=== PATIENT | female | born 1940 | race Caucasian/White ===

== ENCOUNTER → 2017-10-20 | Outpatient (CLI) | payer MEDICARE ==
[~2017-10-20] MED LIST: AMARYL4 MG PO; ASPIRIN325 MG PO; CALCITRIOL0.25 MCG PO; JANUVIA50 MG PO; PRILOSEC20 MG PO; TOPROL XL100 MG PO; ZOCOR40 MG PO; ZYLOPRIM100 MG PO
== END | disposition home or self-care (01) ==
LOC: US 03:31
DX: E04.9 Nontoxic goiter, unspecified (principal)

== ENCOUNTER → 2017-11-07 | Outpatient (CLI) | payer MEDICARE ==
[2017-11-07 10:41] LABS: INTERNATIONAL NORM RATIO 0.9 (2.0-3.5)
== END | disposition home or self-care (01) ==
LOC: SDC 04:58 → EDSTATUS 11:00 → US 11:00 → SDC 11:00
PROVIDERS: Family Medicine
DX: E04.1 Nontoxic single thyroid nodule (principal)

== ENCOUNTER → 2018-03-01 | Day surgery (SDC) | payer MEDICARE ==
[~2018-03-01] VITALS: Ht 154.9 cm; Wt 88.5 kg
[~2018-03-01] MED LIST changes: +24 HOUR ALLER15.8 ML NAS; +AMLODIPINE BES2.5 MG PO; +LANTUS SOL100 UNIT/1 SC; +MONTELUKAST SOD10 MG PO; +PRILOSEC20 M1 PO; -PRILOSEC20 MG PO; +PROAIR HFA8.5 GM INH; +SODIUM BICARBO650 MG PO; +VITAMIN D32000 UNIT PO
--- NOTE | ~2018-03-01 | O ---
[place], [place] OPERATIVE NOTE NAME: CECILIO FREEMAN UNIT #: [id number] ROOM: DOCTOR: REY PLUMMER MD BIRTHDATE: [birth year] DOS: 03/01/2018 PREOPERATIVE DIAGNOSIS: Cataract, left eye. POSTOPERATIVE DIAGNOSIS: Cataract, left eye. OPERATION: Extracapsular cataract extraction by phacoemulsification with posterior chamber intraocular lens implantation, left eye. ANESTHESIA: Monitored standby. OPERATIVE FINDINGS AND PROCEDURE: 2% Xylocaine topical anesthetic gel was applied to the eye in the preop area. The patient was taken to the operating room and prepped and draped in the standard fashion for sterile intraocular surgery. A time out procedure was performed verifying correct patient, correct site and corrects lens with Dorothea Plummer M.D. The operating microscope was swung into position and the lid speculum was inserted. Using a Shannon paracentesis blade, a paracentesis was made through clear cornea. Viscoelastic was used to fill the anterior chamber. Using a metal keratome a 2.4 mm self-sealing clear corneal cataract incision was made temporally at the limbus. Using a pre-bent 25 gauge cystotome needle, a standard continuous curvilinear capsulorrhexis was performed. The anterior capsule was removed with forceps. The lens nucleus was hydrodissected and phacoemulsified in the posterior chamber. Cortical material was removed with the irrigation aspiration hand piece and the posterior capsule was then polished with a curet under irrigation. The posterior chamber and capsular bag were filled with viscoelastic. A posterior chamber intraocular lens manufactured by: [employer], Model #[id number], and 12.0 diopters in strength were then inserted into the posterior chamber and within the capsular bag using the lens cartridge and injector system. Viscoelastic was removed using the irrigation aspiration handpiece. The anterior chamber was filled with balanced salt solution through the paracentesis. Both the paracentesis site and cataract incisions were hydrated with BSS and verified to be water-tight and self-sealing. Cefuroxime 1 mg/0.1 mL was injected into the anterior chamber through the paracentesis site. The incision checked to be water-tight using a Weck-Eusebia sponge. The integrity of the cataract wound and ocular tension were checked. Lid speculum and drapes were removed. The patient was transferred from the operating room to the recovery room in satisfactory condition. [place], [place] OPERATIVE NOTE NAME: CECILIO FREEMAN UNIT #: [id number] ROOM: DOCTOR: REY PLUMMER MD BIRTHDATE: [birth year] REY PLUMMER MD CM:OPRECORD:OPERATIVE NOTE REY PLUMMER MD 03/01/18 0951 interface
[2018-03-01 07:51] VITALS: BP 141/49
[2018-03-01 09:00] VITALS: BP 117/54
[2018-03-01 09:15] VITALS: BP 136/63
[2018-03-01 09:23] VITALS: BP 144/51
== END | disposition home or self-care (01) ==
LOC: SDC 02-24 11:00
DX: E11.36 Type 2 diabetes mellitus with diabetic cataract (principal); H25.812 Combined forms of age-related cataract, left eye; I10 Essential (primary) hypertension; E78.00 Pure hypercholesterolemia, unspecified; J45.909 Unspecified asthma, uncomplicated; K21.9 Gastro-esophageal reflux disease without esophagitis; M19.90 Unspecified osteoarthritis, unspecified site; E07.9 Disorder of thyroid, unspecified; Z98.890 Other specified postprocedural states; Z90.49 Acquired absence of other specified parts of digestive tract; Z91.012 Allergy to eggs; Z96.651 Presence of right artificial knee joint; Z90.710 Acquired absence of both cervix and uterus; Z98.41 Cataract extraction status, right eye; Z85.828 Personal history of other malignant neoplasm of skin

== ENCOUNTER 2019-02-20 11:17 | Emergency (ER) | payer MEDICARE ==
[~2019-02-20] VITALS: Ht 157.4 cm; Wt 87.5 kg
[~2019-02-20 11:17] MED LIST changes: +AUGMENTIN 875875 MG PO
[2019-02-20 13:27] VITALS: BP 136/44
[2019-02-20] MEDS ORDERED: VIBRAMYCIN100 MG PO (14:06)
[2019-02-20] MEDS ORDERED: BLEPH-10 5 ML5 ML OP (14:06)
== END 2019-02-20 14:11 | disposition home or self-care (01) ==
LOC: ED 11:17
DX: J45.909 Unspecified asthma, uncomplicated (principal); H10.33 Unspecified acute conjunctivitis, bilateral; E11.9 Type 2 diabetes mellitus without complications; I10 Essential (primary) hypertension; M19.90 Unspecified osteoarthritis, unspecified site; E78.00 Pure hypercholesterolemia, unspecified; K21.9 Gastro-esophageal reflux disease without esophagitis; Z79.899 Other long term (current) drug therapy; Z91.012 Allergy to eggs

== ENCOUNTER → 2019-02-28 | Outpatient (CLI) | payer MEDICARE ==
[~2019-02-28] MED LIST changes: +BLEPH-10 5 ML5 ML OP; +VIBRAMYCIN100 MG PO
== END | disposition home or self-care (01) ==
LOC: US 01:04
DX: E04.2 Nontoxic multinodular goiter (principal)

== ENCOUNTER 2019-07-13 10:19 | Inpatient (IN) | payer MEDICARE ==
[~2019-07-13] VITALS: Ht 157.4 cm; Wt 86.4 kg
[2019-07-13 10:22] VITALS: BP 155/73
[2019-07-13 11:22] LABS: BASO % 0.3 % (0.0-1.0); EOS # 0.1 10*3/uL (0.0-0.4); EOS % 0.9 % (1.0-4.0); HEMATOCRIT 37.9 % (37.0-47.0); LYMPH # 0.9 10*3/uL (1.3-4.4); LYMPH % 5.5 % (27.0-41.0); MEAN CELL VOLUME 92.9 fl (81.0-99.0); MEAN CORPUSCULAR HGB 29.4 pg (27.0-31.0); MEAN CORPUSCULAR HGB CONC 31.7 g/dl (33.0-37.0); MEAN PLATELET VOLUME 11.8 fl (9.6-12.3); MONO # 1.2 10*3/uL (0.1-1.0); MONO % 7.4 % (3.0-9.0); NEUT # 13.2 10*3/uL (2.3-7.9); NEUT % 85.3 % (47.0-73.0); PLATELET COUNT AUTOMATED 232 10*3/uL (130-400); RED BLOOD COUNT 4.08 10*6/uL (4.10-5.10); WHITE BLOOD COUNT 15.5 10*3/uL (4.8-10.8)
[2019-07-13 11:37] LABS: ALBUMIN 2.6 gm/dl (3.1-4.5); CREATININE 2.94 mg/dL (0.55-1.02); POTASSIUM 4.2 mmol/L (3.5-5.1); TOTAL PROTEIN 7.2 gm/dL (6.4-8.2)
[2019-07-13] MEDS ORDERED: MAGNESIUM400 M1 PO (13:32)
[2019-07-13 13:48] VITALS: BP 145/59
[2019-07-13 16:00] VITALS: BP 124/39
--- NOTE | 2019-07-13 16:35 | NUR ---
ANSWERING SERVICE WAS NOTIFIED OF DR. SANDRA HOWARD. RESPONSE OF NOTIFICATION WAS all relevant information related to consult was communicated to Agustina who states she will forward to SERAFIN Che
[2019-07-13 20:00] VITALS: BP 120/48
--- NOTE | 2019-07-13 20:00 | NUR ---
Patient resting quietly with no c/o discomfort. Respirations easy and regular. Vital signs stable. No overt distress. NISH VALENTINE
[2019-07-14] VITALS: BP 98/36
[2019-07-14 04:00] VITALS: BP 120/42
--- NOTE | 2019-07-14 05:38 | NUR ---
24 HR chart check completed.
[2019-07-14 06:20] LABS: HEMATOCRIT 32.5 % (37.0-47.0); HEMOGLOBIN 10.7 g/dl (12.0-16.0); MEAN CELL VOLUME 90.5 fl (81.0-99.0); MEAN CORPUSCULAR HGB 29.8 pg (27.0-31.0); MEAN CORPUSCULAR HGB CONC 32.9 g/dl (33.0-37.0); MEAN PLATELET VOLUME 11.8 fl (9.6-12.3); PLATELET COUNT AUTOMATED 221 10*3/uL (130-400); RED BLOOD COUNT 3.59 10*6/uL (4.10-5.10); RED CELL DISTRI WIDTH 12.7 % (0-14.5); WHITE BLOOD COUNT 13.3 10*3/uL (4.8-10.8)
[2019-07-14 06:50] LABS: CREATININE 2.69 mg/dL (0.55-1.02); PHOSPHOROUS 3.6 mg/dL (2.5-4.9); POTASSIUM 4.5 mmol/L (3.5-5.1)
[2019-07-14 07:47] LABS: TOTAL CELLS COUNTED 100 #CELLS
[2019-07-14 07:48] LABS: BURR CELLS FEW; OVALOCYTES FEW; PLATELET SUFFICIENCY NORMAL (NORMAL)
[2019-07-14 07:58] LABS: VITAMIN D, 25-HYDROXY 68.3 ng/mL (30-100)
[2019-07-14 08:00] VITALS: BP 145/62
--- NOTE | 2019-07-14 11:02 | NUR ---
Building Maintenance Engineer in to talk to patient. Patient states lives at home with daughter living next door. There are 1 steps in the home. Physician: Babar Mcclellan Pharmacy: [id number] Home health services: no Patient's level of ADLs: INDEPENDENT Patient has working utilities: yes DME: cane and walker - but doesn't use Follow-up physician's appointment after d/c: yes Does patient want to access PORTAL?: yes Discharge plan Patient resides independently with her daughter living next door. Patient's home is handicap accessible with a walk-in shower and guard rails in place in the bathroom. Pt has never needed VNA services and does not have a preferred agency if needed. Anticipate pt returning home without needs. KAEL MARES
[2019-07-14 12:00] VITALS: BP 152/66
[2019-07-14 15:25] LABS: BILIRUBIN NEGATIVE (NEGATIVE); BLOOD TRACE-LYSED (NEGATIVE); CLARITY CLEAR (CLEAR); COLOR YELLOW (YELLOW); GLUCOSE TRACE (NEGATIVE); KETONE NEGATIVE (NEGATIVE); SPECIFIC GRAVITY 1.005 (1.005-1.030); UROBILINOGEN 0.2 E.U./dl (0.2-1.0)
[2019-07-14 15:26] LABS: LEUKO ESTERASE NEGATIVE (NEGATIVE); NITRITE NEGATIVE (NEGATIVE)
[2019-07-14 15:27] LABS: BACTERIA TRACE; EPITHELIAL CELLS 0-2
[2019-07-14 16:00] VITALS: BP 113/49; BP 128/59
--- NOTE | 2019-07-14 19:30 | NUR ---
24 HR chart check completed.
[2019-07-14 20:00] VITALS: BP 150/73
--- NOTE | 2019-07-14 20:00 | NUR ---
Patient resting quietly with no c/o discomfort. Respirations easy and regular. Vital signs stable. No overt distress. NISH VALENTINE
[2019-07-15] VITALS: BP 117/52
--- NOTE | 2019-07-15 | NUR ---
PT WITH SLIGHT CONFUSION AT PRESENT, REORIENTED FREQUENTLY.
--- NOTE | 2019-07-15 04:00 | NUR ---
Patient resting quietly with no c/o discomfort. Respirations easy and regular. Vital signs stable. No overt distress. NISH VALENTINE
[2019-07-15 06:40] LABS: BASO % 0.1 % (0.0-1.0); EOS # 0.1 10*3/uL (0.0-0.4); EOS % 0.5 % (1.0-4.0); HEMATOCRIT 30.9 % (37.0-47.0); HEMOGLOBIN 10.1 g/dl (12.0-16.0); LYMPH # 1.6 10*3/uL (1.3-4.4); LYMPH % 10.5 % (27.0-41.0); MEAN CELL VOLUME 91.7 fl (81.0-99.0); MEAN CORPUSCULAR HGB CONC 32.7 g/dl (33.0-37.0); MEAN PLATELET VOLUME 11.9 fl (9.6-12.3); MONO % 6.7 % (3.0-9.0); NEUT # 12.4 10*3/uL (2.3-7.9); NEUT % 81.6 % (47.0-73.0); PLATELET COUNT AUTOMATED 238 10*3/uL (130-400); RED BLOOD COUNT 3.37 10*6/uL (4.10-5.10); RED CELL DISTRI WIDTH 12.9 % (0-14.5); WHITE BLOOD COUNT 15.2 10*3/uL (4.8-10.8)
[2019-07-15 06:49] LABS: CREATININE 2.44 mg/dL (0.55-1.02)
[2019-07-15 08:00] VITALS: BP 135/42
[2019-07-15] MEDS ORDERED: ZITHROMAX250 MG PO (11:06)
[2019-07-15] MEDS ORDERED: CALCITRIOL0.25 MCG PO (11:06)
--- NOTE | 2019-07-15 11:30 | NUR ---
PT DISCHARGED HOME AT THIS TIME. INSTRUCTIONS REVIEWED. STEPHANIE AYERS.
[2019-07-15] MEDS ORDERED: ROBITUSSIN5 ML PO (11:51)
== END 2019-07-15 11:30 | disposition home or self-care (01) | DRG 682 ==
LOC: ED 10:19 → 5E 13:07 → EDHOLD 13:07 → 5E 13:10
PROVIDERS: Internal Medicine; Physician Assistant; Student in an Organized Health Care Education/Training Program; ADMIT Emergency Medicine
DX: N17.0 Acute kidney failure with tubular necrosis (principal); J18.9 Pneumonia, unspecified organism; E43 Unspecified severe protein-calorie malnutrition; E87.2 Acidosis; E11.65 Type 2 diabetes mellitus with hyperglycemia; K21.9 Gastro-esophageal reflux disease without esophagitis; E78.5 Hyperlipidemia, unspecified; E11.22 Type 2 diabetes mellitus with diabetic chronic kidney disease; N18.9 Chronic kidney disease, unspecified; I12.9 Hypertensive chronic kidney disease with stage 1 through stage 4 chronic kidney disease, or unspecified chronic kidney disease; E11.649 Type 2 diabetes mellitus with hypoglycemia without coma; J45.909 Unspecified asthma, uncomplicated; E66.9 Obesity, unspecified; Z96.651 Presence of right artificial knee joint; M19.90 Unspecified osteoarthritis, unspecified site; Z98.42 Cataract extraction status, left eye; Z91.012 Allergy to eggs; Z82.49 Family history of ischemic heart disease and other diseases of the circulatory system; Z83.3 Family history of diabetes mellitus; Z79.4 Long term (current) use of insulin; Z98.41 Cataract extraction status, right eye; Z90.49 Acquired absence of other specified parts of digestive tract; Z90.710 Acquired absence of both cervix and uterus; Z68.34 Body mass index [BMI] 34.0-34.9, adult; N18.4 Chronic kidney disease, stage 4 (severe)

== ENCOUNTER → 2020-02-11 | Outpatient (CLI) | payer MEDICARE ==
[~2020-02-11] MED LIST changes: +MAGNESIUM400 M1 PO; +ROBITUSSIN5 ML PO; +ZITHROMAX250 MG PO
[2020-02-11 12:57] LABS: BASO # 0.1 10*3/uL (0.0-0.1); BASO % 0.5 % (0.0-1.0); EOS # 0.7 10*3/uL (0.0-0.4); EOS % 6.1 % (1.0-4.0); HEMATOCRIT 37.6 % (37.0-47.0); LYMPH # 2.2 10*3/uL (1.3-4.4); LYMPH % 20.1 % (27.0-41.0); MEAN CORPUSCULAR HGB 29.5 pg (27.0-31.0); MEAN CORPUSCULAR HGB CONC 31.4 g/dl (33.0-37.0); MEAN PLATELET VOLUME 12.4 fl (9.6-12.3); MONO # 0.8 10*3/uL (0.1-1.0); MONO % 7.2 % (3.0-9.0); NEUT # 7.3 10*3/uL (2.3-7.9); NEUT % 65.7 % (47.0-73.0); PLATELET COUNT AUTOMATED 209 10*3/uL (130-400); RED CELL DISTRI WIDTH 13.5 % (0-14.5); WHITE BLOOD COUNT 11.1 10*3/uL (4.8-10.8)
[2020-02-11 13:20] LABS: ALBUMIN 3.5 gm/dl (3.1-4.5); POTASSIUM 4.8 mmol/L (3.5-5.1)
[2020-02-11 13:22] LABS: CREATININE 2.64 mg/dL (0.55-1.02)
[2020-02-11 13:43] LABS: BILIRUBIN NEGATIVE; BLOOD NEGATIVE (NEGATIVE); CLARITY CLEAR (CLEAR); COLOR YELLOW (YELLOW); GLUCOSE NEGATIVE; KETONE NEGATIVE; LEUKO ESTERASE NEGATIVE (NEGATIVE); NITRITE NEGATIVE (NEGATIVE); UROBILINOGEN 0.2 E.U./dl (0.0-1.0)
[2020-02-11 13:53] LABS: URINE CREATININE RANDOM 66.6 mg/dL
[2020-02-11 14:00] LABS: BACTERIA TRACE; RBC 0-2 rbc/hpf (0-2); WBC 0-2 wbc/hpf (0-5)
== END | disposition home or self-care (01) ==
LOC: LAB 12:32
PROVIDERS: ATTEND Internal Medicine Nephrology
DX: N18.4 Chronic kidney disease, stage 4 (severe) (principal)

== ENCOUNTER → 2020-03-06 | Outpatient (CLI) | payer MEDICARE | END | disposition home or self-care (01) | LOC: US 01:07 | PROVIDERS: ATTEND Otolaryngology | DX: E04.9 Nontoxic goiter, unspecified (principal) ==

== ENCOUNTER → 2021-02-16 | Outpatient (CLI) | payer MEDICARE ==
[2021-02-16 08:02] LABS: BASO % 0.2 % (0.0-1.0); EOS # 0.3 10*3/uL (0.0-0.4); EOS % 4.2 % (1.0-4.0); HEMATOCRIT 37.3 % (37.0-47.0); LYMPH # 1.7 10*3/uL (1.3-4.4); LYMPH % 20.8 % (27.0-41.0); MEAN CELL VOLUME 93.3 fl (81.0-99.0); MEAN CORPUSCULAR HGB 29.5 pg (27.0-31.0); MEAN CORPUSCULAR HGB CONC 31.6 g/dl (33.0-37.0); MEAN PLATELET VOLUME 12.7 fl (9.6-12.3); MONO # 0.7 10*3/uL (0.1-1.0); MONO % 9.1 % (3.0-9.0); NEUT # 5.3 10*3/uL (2.3-7.9); NEUT % 65.3 % (47.0-73.0); PLATELET COUNT AUTOMATED 180 10*3/uL (130-400); RED CELL DISTRI WIDTH 13.6 % (0-14.5); WHITE BLOOD COUNT 8.1 10*3/uL (4.8-10.8)
[2021-02-16 08:09] LABS: CREATININE 2.79 mg/dL (0.55-1.02); POTASSIUM 4.4 mmol/L (3.5-5.1)
[2021-02-16 08:11] LABS: CHOLESTEROL 131 mg/dL (<200); LDL CHOLESTEROL 61 mg/dL (9-159); TRIGLYCERIDES 167 mg/dl (<150)
[2021-02-16 09:02] LABS: FERRITIN 27.6 ng/mL (10.0-291.0)
[2021-02-16 09:03] LABS: PTH INTACT 156.6 pg/mL (18.5-88.0)
[2021-02-16 10:26] LABS: BILIRUBIN Negative (Negative); BLOOD Negative (Negative); CLARITY Clear (Clear); COLOR Yellow (Yellow); GLUCOSE Negative (Negative); KETONE Negative (Negative); LEUKO ESTERASE Negative (Negative); NITRITE Negative (Negative); PH 5.5 (4.5-8.0); SPECIFIC GRAVITY <= 1.005 (1.001-1.030); UROBILINOGEN 0.2 E.U./dl (0.0-1.0)
[2021-02-16 10:34] LABS: URINE CREATININE RANDOM 60.5 mg/dL
[2021-02-16 10:44] LABS: BACTERIA TRACE; RBC 0-2 rbc/hpf (0-2); WBC 0-2 wbc/hpf (0-5)
== END | disposition home or self-care (01) ==
LOC: LAB 07:25
PROVIDERS: Internal Medicine Nephrology; ATTEND Family Medicine
DX: N18.4 Chronic kidney disease, stage 4 (severe) (principal); D63.1 Anemia in chronic kidney disease; Z79.899 Other long term (current) drug therapy

== ENCOUNTER → 2021-02-26 | Outpatient (CLI) | payer MEDICARE | END | disposition home or self-care (01) | LOC: US 01:30 | PROVIDERS: ATTEND Physician Assistant | DX: E04.2 Nontoxic multinodular goiter (principal) ==

== ENCOUNTER → 2021-06-18 | Outpatient (CLI) | payer MEDICARE ==
[2021-06-18 08:20] LABS: BASO # 0.1 10*3/uL (0.0-0.1); BASO % 0.6 % (0.0-1.0); EOS # 1.3 10*3/uL (0.0-0.4); EOS % 12.8 % (1.0-4.0); HEMATOCRIT 40.1 % (37.0-47.0); LYMPH # 2.2 10*3/uL (1.3-4.4); LYMPH % 21.4 % (27.0-41.0); MEAN CELL VOLUME 94.4 fl (81.0-99.0); MEAN CORPUSCULAR HGB 29.4 pg (27.0-31.0); MEAN CORPUSCULAR HGB CONC 31.2 g/dl (33.0-37.0); MEAN PLATELET VOLUME 12.8 fl (9.6-12.3); MONO # 0.8 10*3/uL (0.1-1.0); MONO % 7.6 % (3.0-9.0); NEUT # 5.7 10*3/uL (2.3-7.9); NEUT % 57.1 % (47.0-73.0); PLATELET COUNT AUTOMATED 224 10*3/uL (130-400); RED BLOOD COUNT 4.25 10*6/uL (4.10-5.10); RED CELL DISTRI WIDTH 13.6 % (0-14.5); WHITE BLOOD COUNT 10.1 10*3/uL (4.8-10.8)
[2021-06-18 08:44] LABS: CHOLESTEROL 116 mg/dL (<200); LDL CHOLESTEROL 38 mg/dL (9-159); TRIGLYCERIDES 199 mg/dl (<150)
[2021-06-18 08:47] LABS: ALBUMIN 3.3 gm/dl (3.1-4.5); CREATININE 2.89 mg/dL (0.55-1.02); POTASSIUM 4.4 mmol/L (3.5-5.1)
[2021-06-18 09:46] LABS: FERRITIN 28.8 ng/mL (10.0-291.0); VITAMIN D, 25-HYDROXY 72.6 ng/mL (30-100)
== END | disposition home or self-care (01) ==
LOC: LAB 07:31
PROVIDERS: Family Medicine; ATTEND Internal Medicine Nephrology
DX: N18.4 Chronic kidney disease, stage 4 (severe) (principal); D63.1 Anemia in chronic kidney disease; N25.81 Secondary hyperparathyroidism of renal origin; E11.9 Type 2 diabetes mellitus without complications

== ENCOUNTER → 2021-06-19 | Outpatient (CLI) | payer MEDICARE ==
[2021-06-19 07:33] LABS: BILIRUBIN Negative (Negative); BLOOD Negative (Negative); CLARITY Clear (Clear); COLOR Yellow (Yellow); GLUCOSE Negative (Negative); KETONE Negative (Negative); LEUKO ESTERASE Negative (Negative); NITRITE Negative (Negative); PH 5.5 (4.5-8.0); UROBILINOGEN 0.2 E.U./dl (0.0-1.0)
[2021-06-19 07:42] LABS: URINE CREATININE RANDOM 77.5 mg/dL
[2021-06-19 10:56] LABS: BACTERIA TRACE
== END | disposition home or self-care (01) ==
LOC: LAB 07:09
PROVIDERS: ATTEND Internal Medicine Nephrology
DX: N18.4 Chronic kidney disease, stage 4 (severe) (principal); D63.1 Anemia in chronic kidney disease; N25.81 Secondary hyperparathyroidism of renal origin; Z79.899 Other long term (current) drug therapy

== ENCOUNTER → 2021-10-20 | Outpatient (CLI) | payer MEDICARE ==
[2021-10-20 07:52] LABS: BASO % 0.5 % (0.0-1.0); EOS # 0.5 10*3/uL (0.0-0.4); EOS % 6.3 % (1.0-4.0); LYMPH # 1.5 10*3/uL (1.3-4.4); LYMPH % 18.4 % (27.0-41.0); MEAN CELL VOLUME 94.9 fl (81.0-99.0); MEAN CORPUSCULAR HGB 30.3 pg (27.0-31.0); MEAN CORPUSCULAR HGB CONC 31.9 g/dl (33.0-37.0); MEAN PLATELET VOLUME 12.8 fl (9.6-12.3); MONO # 0.7 10*3/uL (0.1-1.0); MONO % 8.7 % (3.0-9.0); NEUT # 5.3 10*3/uL (2.3-7.9); NEUT % 65.5 % (47.0-73.0); PLATELET COUNT AUTOMATED 140 10*3/uL (130-400); RED CELL DISTRI WIDTH 14.2 % (0-14.5); WHITE BLOOD COUNT 8.1 10*3/uL (4.8-10.8)
[2021-10-20 07:56] LABS: BILIRUBIN Negative (Negative); BLOOD Negative (Negative); CLARITY Clear (Clear); COLOR Yellow (Yellow); GLUCOSE Negative (Negative); KETONE Negative (Negative); LEUKO ESTERASE Negative (Negative); NITRITE Negative (Negative); PH 5.5 (4.5-8.0); UROBILINOGEN 0.2 E.U./dl (0.0-1.0)
[2021-10-20 08:04] LABS: CREATININE 2.89 mg/dL (0.55-1.02); POTASSIUM 4.4 mmol/L (3.5-5.1); URIC ACID 5.5 mg/dL (2.6-6.0)
[2021-10-20 08:06] LABS: URINE CREATININE RANDOM 59.6 mg/dL
[2021-10-20 08:34] LABS: FERRITIN 33.7 ng/mL (10.0-291.0); VITAMIN D, 25-HYDROXY 58.3 ng/mL (30-100)
== END | disposition home or self-care (01) ==
LOC: LAB 07:27
PROVIDERS: ATTEND Internal Medicine Nephrology
DX: N18.4 Chronic kidney disease, stage 4 (severe) (principal); D63.1 Anemia in chronic kidney disease; N25.81 Secondary hyperparathyroidism of renal origin; M10.9 Gout, unspecified; Z79.899 Other long term (current) drug therapy

== ENCOUNTER → 2022-02-11 | Outpatient (CLI) | payer MEDICARE ==
[2022-02-11 14:02] LABS: BILIRUBIN Negative (Negative); BLOOD Negative (Negative); CLARITY Clear (Clear); COLOR Yellow (Yellow); GLUCOSE Negative (Negative); KETONE Negative (Negative); LEUKO ESTERASE 3+ (Negative); NITRITE Negative (Negative); PH 5.5 (4.5-8.0); SPECIFIC GRAVITY <= 1.005 (1.001-1.030); UROBILINOGEN 0.2 E.U./dl (0.0-1.0)
[2022-02-11 14:13] LABS: BACTERIA 1+; WBC 31-40 wbc/hpf (0-5)
== END | disposition home or self-care (01) ==
LOC: LAB 13:10
PROVIDERS: ATTEND Family Medicine
DX: N30.00 Acute cystitis without hematuria (principal)

== ENCOUNTER → 2022-02-22 | Outpatient (CLI) | payer MEDICARE | END | disposition home or self-care (01) | LOC: RAD 14:14 | PROVIDERS: ATTEND Specialist | DX: J84.10 Pulmonary fibrosis, unspecified (principal); J43.8 Other emphysema; R91.8 Other nonspecific abnormal finding of lung field ==

== ENCOUNTER 2022-02-28 08:38 | Emergency (ER) | payer MEDICARE ==
[~2022-02-28] VITALS: Ht 162.5 cm; Wt 83.9 kg
[2022-02-28 09:14] LABS: BASO % 0.1 % (0.0-1.0); EOS # 0.1 10*3/uL (0.0-0.4); EOS % 0.6 % (1.0-4.0); HEMATOCRIT 39.4 % (37.0-47.0); LYMPH # 1.3 10*3/uL (1.3-4.4); LYMPH % 8.7 % (27.0-41.0); MEAN CELL VOLUME 93.6 fl (81.0-99.0); MEAN CORPUSCULAR HGB 30.6 pg (27.0-31.0); MEAN CORPUSCULAR HGB CONC 32.7 g/dl (33.0-37.0); MEAN PLATELET VOLUME 12.3 fl (9.6-12.3); MONO # 0.8 10*3/uL (0.1-1.0); MONO % 5.3 % (3.0-9.0); NEUT % 84.6 % (47.0-73.0); PLATELET COUNT AUTOMATED 231 10*3/uL (130-400); RED BLOOD COUNT 4.21 10*6/uL (4.10-5.10); RED CELL DISTRI WIDTH 13.9 % (0-14.5); WHITE BLOOD COUNT 15.4 10*3/uL (4.8-10.8)
[2022-02-28] MEDS ORDERED: SPIRIVA RESPIMAT4 GM INH (09:15)
[2022-02-28] MEDS ORDERED: FLONASE ALLERG9.9 ML NAS (09:17)
[2022-02-28] MEDS ORDERED: LANTUS SOL100 UNIT/1 SC (09:21)
[2022-02-28] MEDS ORDERED: ROSUVASTATIN PO (09:22)
[2022-02-28 09:25] LABS: ACT PARTIAL THROMBO TIME 26.3 SECONDS (20.0-32.1)
[2022-02-28 09:32] LABS: CREATININE 3.37 mg/dL (0.55-1.02); POTASSIUM 5.3 mmol/L (3.5-5.1)
[2022-02-28] MEDS ORDERED: VENTOLIN 02.5 MG/3 M INH (11:31)
[2022-02-28] MEDS ORDERED: AVPAK AZITHROM250 MG PO (11:31)
[2022-02-28] MEDS ORDERED: PREDNISONE10 MG PO (11:31)
[2022-02-28 12:36] VITALS: BP 162/70
== END 2022-02-28 12:37 | disposition home or self-care (01) ==
LOC: ED 08:38
PROVIDERS: Emergency Medicine
DX: J45.909 Unspecified asthma, uncomplicated (principal); K21.9 Gastro-esophageal reflux disease without esophagitis; E66.9 Obesity, unspecified; M19.90 Unspecified osteoarthritis, unspecified site; I12.9 Hypertensive chronic kidney disease with stage 1 through stage 4 chronic kidney disease, or unspecified chronic kidney disease; E11.22 Type 2 diabetes mellitus with diabetic chronic kidney disease; N18.4 Chronic kidney disease, stage 4 (severe); Z91.012 Allergy to eggs; Z79.899 Other long term (current) drug therapy; Z90.49 Acquired absence of other specified parts of digestive tract; Z90.710 Acquired absence of both cervix and uterus

== ENCOUNTER → 2022-03-19 | Outpatient (CLI) | payer MEDICARE ==
[~2022-03-19] MED LIST changes: +AVPAK AZITHROM250 MG PO; +FLONASE ALLERG9.9 ML NAS; +PREDNISONE10 MG PO; +ROSUVASTATIN PO; +SPIRIVA RESPIMAT4 GM INH; +VENTOLIN 02.5 MG/3 M INH
[2022-03-19 08:35] LABS: CREATININE 2.87 mg/dL (0.55-1.02); POTASSIUM 4.8 mmol/L (3.5-5.1)
[2022-03-19 08:43] LABS: THYROID STIM HORMONE (HS) 0.253 uIU/ml (0.358-4.75)
== END | disposition home or self-care (01) ==
LOC: LAB 07:59
PROVIDERS: ATTEND Family Medicine
DX: E11.22 Type 2 diabetes mellitus with diabetic chronic kidney disease (principal); N18.9 Chronic kidney disease, unspecified; E78.2 Mixed hyperlipidemia; E03.9 Hypothyroidism, unspecified

== ENCOUNTER → 2022-03-30 | Outpatient (CLI) | payer MEDICARE | END | disposition home or self-care (01) | LOC: US 01:31 | PROVIDERS: ATTEND Physician Assistant | DX: E04.2 Nontoxic multinodular goiter (principal) ==

== ENCOUNTER → 2022-04-20 | Outpatient (CLI) | payer MEDICARE ==
[2022-04-20 07:23] LABS: BASO # 0.1 10*3/uL (0.0-0.1); BASO % 0.4 % (0.0-1.0); EOS # 0.3 10*3/uL (0.0-0.4); EOS % 2.5 % (1.0-4.0); HEMATOCRIT 36.7 % (37.0-47.0); LYMPH # 2.9 10*3/uL (1.3-4.4); LYMPH % 23.8 % (27.0-41.0); MEAN CELL VOLUME 95.6 fl (81.0-99.0); MEAN CORPUSCULAR HGB 31.3 pg (27.0-31.0); MEAN CORPUSCULAR HGB CONC 32.7 g/dl (33.0-37.0); MEAN PLATELET VOLUME 11.9 fl (9.6-12.3); MONO % 8.3 % (3.0-9.0); NEUT # 7.7 10*3/uL (2.3-7.9); NEUT % 63.8 % (47.0-73.0); PLATELET COUNT AUTOMATED 207 10*3/uL (130-400); RED BLOOD COUNT 3.84 10*6/uL (4.10-5.10); RED CELL DISTRI WIDTH 14.3 % (0-14.5); WHITE BLOOD COUNT 12.1 10*3/uL (4.8-10.8)
[2022-04-20 08:10] LABS: CREATININE 2.78 mg/dL (0.55-1.02); POTASSIUM 4.2 mmol/L (3.5-5.1); URIC ACID 5.5 mg/dL (2.6-6.0)
[2022-04-20 08:38] LABS: VITAMIN D, 25-HYDROXY 80.6 ng/mL (30-100)
[2022-04-20 09:45] LABS: BILIRUBIN Negative (Negative); BLOOD Trace-Lysed (Negative); CLARITY Turbid (Clear); COLOR Yellow (Yellow); GLUCOSE Negative (Negative); KETONE Negative (Negative); LEUKO ESTERASE 3+ (Negative); NITRITE Positive (Negative); PH 5.5 (4.5-8.0); SPECIFIC GRAVITY 1.015 (1.001-1.030); UROBILINOGEN 0.2 E.U./dl (0.0-1.0)
[2022-04-20 11:08] LABS: BACTERIA 2+; WBC TNTC wbc/hpf (0-5)
== END | disposition home or self-care (01) ==
LOC: LAB 00:17
PROVIDERS: ATTEND Internal Medicine Nephrology
DX: N18.4 Chronic kidney disease, stage 4 (severe) (principal); D63.1 Anemia in chronic kidney disease; N25.81 Secondary hyperparathyroidism of renal origin; M10.9 Gout, unspecified; Z79.899 Other long term (current) drug therapy

== ENCOUNTER → 2022-06-03 | Outpatient (CLI) | payer MEDICARE ==
[2022-06-03 08:26] LABS: POTASSIUM 4.7 mmol/L (3.4-5.1); THYROID STIM HORMONE (HS) 0.266 uIU/ml (0.550-4.780)
== END | disposition home or self-care (01) ==
LOC: LAB 00:58
PROVIDERS: ATTEND Family Medicine
DX: E11.9 Type 2 diabetes mellitus without complications (principal); E78.2 Mixed hyperlipidemia; I10 Essential (primary) hypertension

== ENCOUNTER → 2022-10-27 | Outpatient (CLI) | payer MEDICARE ==
[2022-10-27 07:41] LABS: BASO # 0.1 10*3/uL (0.0-0.1); BASO % 0.4 % (0.0-1.0); EOS # 0.9 10*3/uL (0.0-0.4); EOS % 7.2 % (1.0-4.0); HEMATOCRIT 35.9 % (37.0-47.0); LYMPH % 15.7 % (27.0-41.0); MEAN CELL VOLUME 93.5 fl (81.0-99.0); MEAN CORPUSCULAR HGB 29.7 pg (27.0-31.0); MEAN CORPUSCULAR HGB CONC 31.8 g/dl (33.0-37.0); MEAN PLATELET VOLUME 12.6 fl (9.6-12.3); MONO # 0.8 10*3/uL (0.1-1.0); MONO % 6.6 % (3.0-9.0); NEUT # 8.8 10*3/uL (2.3-7.9); NEUT % 69.8 % (47.0-73.0); PLATELET COUNT AUTOMATED 212 10*3/uL (130-400); RED BLOOD COUNT 3.84 10*6/uL (4.10-5.10); WHITE BLOOD COUNT 12.6 10*3/uL (4.8-10.8)
[2022-10-27 07:42] LABS: BILIRUBIN Negative (Negative); BLOOD Negative (Negative); CLARITY Clear (Clear); COLOR Yellow (Yellow); GLUCOSE Negative (Negative); KETONE Negative (Negative); LEUKO ESTERASE 2+ (Negative); NITRITE Negative (Negative); PH 6.5 (4.5-8.0); UROBILINOGEN 0.2 E.U./dl (0.0-1.0)
[2022-10-27 07:51] LABS: URINE CREATININE RANDOM 50.79 mg/dL
[2022-10-27 08:08] LABS: POTASSIUM 4.2 mmol/L (3.4-5.1); URIC ACID 5.3 mg/dL (3.1-7.8)
[2022-10-27 08:11] LABS: POTASSIUM 4.2 mmol/L (3.4-5.1); THYROID STIM HORMONE (HS) 0.406 uIU/ml (0.550-4.780)
[2022-10-27 08:40] LABS: BACTERIA TRACE; RBC 0-2 rbc/hpf (0-2); WBC TNTC wbc/hpf (0-5)
[2022-10-27 08:52] LABS: VITAMIN D, 25-HYDROXY 48.9 ng/mL (30-100)
== END | disposition home or self-care (01) ==
LOC: LAB 07:11
PROVIDERS: Family Medicine; ATTEND Internal Medicine Nephrology
DX: I10 Essential (primary) hypertension (principal); E11.9 Type 2 diabetes mellitus without complications; N18.4 Chronic kidney disease, stage 4 (severe); I12.9 Hypertensive chronic kidney disease with stage 1 through stage 4 chronic kidney disease, or unspecified chronic kidney disease; D63.1 Anemia in chronic kidney disease; M10.9 Gout, unspecified; N25.81 Secondary hyperparathyroidism of renal origin; Z79.899 Other long term (current) drug therapy

== ENCOUNTER → 2023-02-22 | Outpatient (CLI) | payer MEDICARE ==
[2023-02-22 07:38] LABS: BASO # 0.1 10*3/uL (0.0-0.1); BASO % 0.6 % (0.0-1.0); EOS # 0.9 10*3/uL (0.0-0.4); EOS % 8.8 % (1.0-4.0); HEMATOCRIT 34.9 % (37.0-47.0); LYMPH # 2.1 10*3/uL (1.3-4.4); LYMPH % 20.9 % (27.0-41.0); MEAN CELL VOLUME 94.3 fl (81.0-99.0); MEAN CORPUSCULAR HGB 29.7 pg (27.0-31.0); MEAN CORPUSCULAR HGB CONC 31.5 g/dl (33.0-37.0); MONO # 0.8 10*3/uL (0.1-1.0); MONO % 7.8 % (3.0-9.0); NEUT # 6.2 10*3/uL (2.3-7.9); NEUT % 61.2 % (47.0-73.0); PLATELET COUNT AUTOMATED 245 10*3/uL (130-400); RED CELL DISTRI WIDTH 13.8 % (0-14.5); WHITE BLOOD COUNT 10.2 10*3/uL (4.8-10.8)
[2023-02-22 08:08] LABS: POTASSIUM 4.3 mmol/L (3.4-5.1)
[2023-02-22 08:09] LABS: POTASSIUM 4.3 mmol/L (3.4-5.1); URIC ACID 6.1 mg/dL (3.1-7.8)
[2023-02-22 08:45] LABS: VITAMIN D, 25-HYDROXY 58.3 ng/mL (30-100)
== END | disposition home or self-care (01) ==
LOC: LAB 01:27
PROVIDERS: Family Medicine; ATTEND Internal Medicine Nephrology
DX: I12.9 Hypertensive chronic kidney disease with stage 1 through stage 4 chronic kidney disease, or unspecified chronic kidney disease (principal); E11.22 Type 2 diabetes mellitus with diabetic chronic kidney disease; N18.4 Chronic kidney disease, stage 4 (severe); M10.9 Gout, unspecified; D63.1 Anemia in chronic kidney disease

== ENCOUNTER → 2023-03-28 | Outpatient (CLI) | payer MEDICARE | END | disposition home or self-care (01) | LOC: US 03-25 10:30 | PROVIDERS: ATTEND Otolaryngology | DX: E04.2 Nontoxic multinodular goiter (principal) ==

== ENCOUNTER → 2023-05-27 | Outpatient (CLI) | payer MEDICARE | END | disposition home or self-care (01) | LOC: RAD 03:13 | PROVIDERS: ATTEND Family Medicine | DX: M85.852 Other specified disorders of bone density and structure, left thigh (principal) ==

== ENCOUNTER → 2023-06-28 | Outpatient (CLI) | payer MEDICARE ==
[2023-06-28 07:43] LABS: BASO # 0.1 10*3/uL (0.0-0.1); BASO % 0.5 % (0.0-1.0); BILIRUBIN Negative (Negative); BLOOD Trace-Lysed (Negative); CLARITY Cloudy (Clear); COLOR Yellow (Yellow); EOS # 0.7 10*3/uL (0.0-0.4); EOS % 6.5 % (1.0-4.0); GLUCOSE Negative (Negative); HEMATOCRIT 37.9 % (37.0-47.0); KETONE Negative (Negative); LEUKO ESTERASE 3+ (Negative); LYMPH # 2.3 10*3/uL (1.3-4.4); LYMPH % 21.3 % (27.0-41.0); MEAN CELL VOLUME 96.7 fl (81.0-99.0); MEAN CORPUSCULAR HGB 29.1 pg (27.0-31.0); MEAN CORPUSCULAR HGB CONC 30.1 g/dl (33.0-37.0); MEAN PLATELET VOLUME 11.5 fl (9.6-12.3); MONO # 0.9 10*3/uL (0.1-1.0); MONO % 8.3 % (3.0-9.0); NEUT # 6.7 10*3/uL (2.3-7.9); NITRITE Negative (Negative); PLATELET COUNT AUTOMATED 227 10*3/uL (130-400); RED BLOOD COUNT 3.92 10*6/uL (4.10-5.10); RED CELL DISTRI WIDTH 13.9 % (0-14.5); SPECIFIC GRAVITY 1.015 (1.001-1.030); UROBILINOGEN 0.2 E.U./dl (0.0-1.0); WHITE BLOOD COUNT 10.6 10*3/uL (4.8-10.8)
[2023-06-28 07:56] LABS: WBC TNTC wbc/hpf (0-5)
[2023-06-28 08:02] LABS: URINE CREATININE RANDOM 116.38 mg/dL
[2023-06-28 08:08] LABS: POTASSIUM 4.9 mmol/L (3.4-5.1); URIC ACID 5.1 mg/dL (3.1-7.8)
[2023-06-28 08:23] LABS: VITAMIN D, 25-HYDROXY 51.4 ng/mL (30-100)
== END | disposition home or self-care (01) ==
LOC: LAB 02:41
PROVIDERS: ATTEND Internal Medicine Nephrology
DX: N18.4 Chronic kidney disease, stage 4 (severe) (principal); M10.9 Gout, unspecified; N25.81 Secondary hyperparathyroidism of renal origin; D63.1 Anemia in chronic kidney disease

== ENCOUNTER → 2023-11-22 | Outpatient (CLI) | payer MEDICARE ==
[2023-11-22 07:38] LABS: BASO % 0.4 % (0.0-1.0); BILIRUBIN Negative (Negative); BLOOD 1+ (Negative); CLARITY Turbid (Clear); COLOR Yellow (Yellow); EOS # 0.7 10*3/uL (0.0-0.4); EOS % 6.9 % (1.0-4.0); GLUCOSE Negative (Negative); HEMATOCRIT 36.5 % (37.0-47.0); KETONE Negative (Negative); LEUKO ESTERASE 3+ (Negative); LYMPH # 2.2 10*3/uL (1.3-4.4); LYMPH % 22.6 % (27.0-41.0); MEAN CELL VOLUME 95.8 fl (81.0-99.0); MEAN CORPUSCULAR HGB 31.5 pg (27.0-31.0); MEAN CORPUSCULAR HGB CONC 32.9 g/dl (33.0-37.0); MEAN PLATELET VOLUME 12.3 fl (9.6-12.3); MONO # 0.7 10*3/uL (0.1-1.0); MONO % 7.5 % (3.0-9.0); NEUT # 5.9 10*3/uL (2.3-7.9); NITRITE Negative (Negative); PLATELET COUNT AUTOMATED 196 10*3/uL (130-400); RED BLOOD COUNT 3.81 10*6/uL (4.10-5.10); RED CELL DISTRI WIDTH 14.2 % (0-14.5); SPECIFIC GRAVITY 1.015 (1.001-1.030); UROBILINOGEN 0.2 E.U./dl (0.0-1.0); WHITE BLOOD COUNT 9.6 10*3/uL (4.8-10.8)
[2023-11-22 08:05] LABS: URINE CREATININE RANDOM 87.09 mg/dL
[2023-11-22 08:09] LABS: POTASSIUM 4.9 mmol/L (3.4-5.1); URIC ACID 5.6 mg/dL (3.1-7.8)
[2023-11-22 08:19] LABS: BACTERIA TRACE; VITAMIN D, 25-HYDROXY 42.2 ng/mL (30-100); WBC TNTC wbc/hpf (0-5)
== END | disposition home or self-care (01) ==
LOC: LAB 03:16
PROVIDERS: ATTEND Internal Medicine Nephrology
DX: N18.4 Chronic kidney disease, stage 4 (severe) (principal); D63.1 Anemia in chronic kidney disease; N25.81 Secondary hyperparathyroidism of renal origin

== ENCOUNTER → 2024-05-30 | Outpatient (CLI) | payer MEDICARE ==
[2024-05-30 08:18] LABS: BASO # 0.1 10*3/uL (0.0-0.1); BASO % 0.5 % (0.0-1.0); EOS # 1.1 10*3/uL (0.0-0.4); EOS % 10.6 % (1.0-4.0); HEMATOCRIT 37.1 % (37.0-47.0); MEAN CELL VOLUME 99.2 fl (81.0-99.0); MEAN CORPUSCULAR HGB CONC 31.3 g/dl (33.0-37.0); MEAN PLATELET VOLUME 12.5 fl (9.6-12.3); MONO # 0.8 10*3/uL (0.1-1.0); MONO % 7.2 % (3.0-9.0); NEUT # 6.7 10*3/uL (2.3-7.9); NEUT % 62.1 % (47.0-73.0); PLATELET COUNT AUTOMATED 209 10*3/uL (130-400); RED BLOOD COUNT 3.74 10*6/uL (4.10-5.10); RED CELL DISTRI WIDTH 13.2 % (0-14.5); WHITE BLOOD COUNT 10.7 10*3/uL (4.8-10.8)
[2024-05-30 08:24] LABS: BILIRUBIN Negative (Negative); BLOOD Negative (Negative); CLARITY Cloudy (Clear); COLOR Yellow (Yellow); GLUCOSE Negative (Negative); KETONE Negative (Negative); LEUKO ESTERASE 2+ (Negative); NITRITE Negative (Negative); UROBILINOGEN 0.2 E.U./dl (0.0-1.0)
[2024-05-30 08:41] LABS: POTASSIUM 4.5 mmol/L (3.4-5.1); URIC ACID 5.5 mg/dL (3.1-7.8)
[2024-05-30 08:49] LABS: BACTERIA 4+; RBC 0-2 rbc/hpf (0-2); WBC TNTC wbc/hpf (0-5)
[2024-05-30 09:49] LABS: VITAMIN D, 25-HYDROXY 53.1 ng/mL (30-100)
== END | disposition home or self-care (01) ==
LOC: LAB 00:23
PROVIDERS: ATTEND Internal Medicine Nephrology
DX: E11.22 Type 2 diabetes mellitus with diabetic chronic kidney disease (principal); N25.81 Secondary hyperparathyroidism of renal origin; M10.9 Gout, unspecified; N18.4 Chronic kidney disease, stage 4 (severe); D63.1 Anemia in chronic kidney disease

== ENCOUNTER → 2025-02-07 | Outpatient (CLI) | payer MEDICARE ==
[2025-02-07 07:24] LABS: BASO # 0.0 10*3/uL (0.0-0.1); BASO % 0.3 % (0.0-1.0); EOS # 1.1 10*3/uL (0.0-0.4); EOS % 9.5 % (1.0-4.0); MEAN CELL VOLUME 97.7 fl (81.0-99.0); MEAN CORPUSCULAR HGB 30.7 pg (27.0-31.0); MEAN PLATELET VOLUME 12.0 fl (9.6-12.3); MONO # 0.9 10*3/uL (0.1-1.0); MONO % 7.6 % (3.0-9.0); NEUT # 7.3 10*3/uL (2.3-7.9); NEUT % 62.9 % (47.0-73.0); NUCLEATED RED BLOOD CELL 0.0 % (0.0-0.0); NUCLEATED RED BLOOD CELL 0.0 10*3/uL (0.0-0.0); PLATELET COUNT AUTOMATED 186 10*3/uL (130-400); RED CELL DISTRI WIDTH 13.7 % (0-14.5)
[2025-02-07 07:46] LABS: BILIRUBIN Negative (Negative); BLOOD Trace-Intact (Negative); CLARITY Cloudy (Clear); COLOR Yellow (Yellow); KETONE Negative (Negative); LEUKO ESTERASE 3+ (Negative); NITRITE Negative (Negative); PH 6.0 (4.5-8.0); SPECIFIC GRAVITY 1.010 (1.001-1.030); UROBILINOGEN 0.2 E.U./dl (0.0-1.0)
[2025-02-07 08:33] LABS: BUN 52.0 mg/dl (9-23)
[2025-02-07 08:40] LABS: VITAMIN D, 25-HYDROXY 47.2 ng/mL (30-100)
[2025-02-07 10:46] LABS: WBC TNTC wbc/hpf (0-5)
[2025-02-07 10:47] LABS: BACTERIA 2+; EPITHELIAL CELLS 16-20
== END | disposition home or self-care (01) ==
LOC: LAB 02:32
PROVIDERS: ATTEND Internal Medicine Nephrology
DX: N25.81 Secondary hyperparathyroidism of renal origin (principal); N18.5 Chronic kidney disease, stage 5; E11.22 Type 2 diabetes mellitus with diabetic chronic kidney disease; M10.9 Gout, unspecified; D63.1 Anemia in chronic kidney disease

== ENCOUNTER 2025-02-26 21:30 | Emergency (ER) | payer MEDICARE ==
[~2025-02-26] VITALS: Ht 167.6 cm; Wt 81.2 kg
[2025-02-26 21:36] VITALS: BP 165/68
[2025-02-26] MEDS ORDERED: METHOCARBAMOL 500 MG TAB PO ONE (23:10)
[2025-02-26] MEDS ORDERED: METHOCARBAMOL500 M1 PO (23:19)
[2025-02-26] MEDS ORDERED: PREDNISONE20 M1 PO (23:19)
== END 2025-02-26 23:26 | disposition home or self-care (01) ==
LOC: ED 21:30
DX: S70.02XA Contusion of left hip, initial encounter (principal); J45.909 Unspecified asthma, uncomplicated; E11.9 Type 2 diabetes mellitus without complications; M19.90 Unspecified osteoarthritis, unspecified site; I10 Essential (primary) hypertension; K21.9 Gastro-esophageal reflux disease without esophagitis; E78.00 Pure hypercholesterolemia, unspecified; Z98.890 Other specified postprocedural states; Z90.722 Acquired absence of ovaries, bilateral; Z90.5 Acquired absence of kidney; Z90.710 Acquired absence of both cervix and uterus; Z90.49 Acquired absence of other specified parts of digestive tract; W19.XXXA Unspecified fall, initial encounter; Y93.89 Activity, other specified; Y92.89 Other specified places as the place of occurrence of the external cause; Y99.8 Other external cause status